=== PATIENT | female | born 1965 | race Two or more races ===

== ENCOUNTER 2018-01-25 23:33 | Emergency (ER) | payer MEDICAID ==
[~2018-01-25] VITALS: Ht 160 cm; Wt 72.6 kg
[2018-01-26] MEDS ORDERED: ONDANSETRON HCL/PF 4 MG/2 ML VIAL IVP ONE
[2018-01-26] MEDS ORDERED: IV NS 0.9% 1,000 ML BAG IV ONE
[2018-01-26] MEDS ORDERED: MORPHINE SULFATE INJ 2 MG/ML DISP.SYRIN IV ONE
--- NOTE | 2018-01-26 | NUR ---
to bed 9 ambulatory c/o abdominal pain x1 day. pt aaox4 no acute distress noted, resp even and unlabored. urine sample collected and sent to lab.
[2018-01-26] MEDS ORDERED: ONDANSETRON HCL/PF 4 MG/2 ML VIAL ONE (00:07)
[2018-01-26] MEDS ORDERED: MORPHINE SULFATE INJ 4 MG/ML DISP.SYRIN ONE (00:07)
--- NOTE | 2018-01-26 00:16 | NUR ---
pt medicated by rn per er md order
[2018-01-26 00:26] LABS: CARBON DIOXIDE 32 mmol/L (21-32); CHLORIDE 104 mmol/L (98-107); CREATININE 0.7 mg/dL (0.6-1.3); GLUCOSE 124 mg/dL (74-106); POTASSIUM 3.9 mmol/L (3.5-5.1); SODIUM SERUM 139 mmol/L (136-145); UREA NITROGEN, BLOOD 8 mg/dL (7-18)
[2018-01-26 00:29] LABS: ALANINE AMINOTRANSFERASE 20 U/L (12-78); ALBUMIN 3.1 g/dL (3.4-5.0); ALKALINE PHOSPHATASE 110 U/L (46-116); ASPARTATE AMINOTRANSFERASE 11 U/L (15-37); BILIRUBIN,DIRECT 0.1 mg/dL (0.0-0.2); BILIRUBIN,TOTAL 0.3 mg/dL (0.2-1.0); LIPASE 130 U/L (73-393); TOTAL PROTEIN, SERUM 7.3 g/dL (6.4-8.2)
[2018-01-26 00:31] LABS: INR 0.96 (0.87-1.13); TROPONIN I < 0.017 ng/mL (0.00-0.056)
[2018-01-26 00:34] LABS: APPEARANCE,URINE SL CLOUDY (CLEAR); BILIRUBIN,URINE NEGATIVE (NEGATIVE); BLOOD, URINE NEGATIVE Ery/uL (NEGATIVE); COLOR,URINE YELLOW (YELLOW); KETONES,URINE NEGATIVE (NEGATIVE); LEUKOCYTE ESTERASE ,URINE NEGATIVE (NEGATIVE); NITRITE, URINE NEGATIVE (NEGATIVE); PROTEIN,URINE NEGATIVE (NEGATIVE); UGLUCOSE NEGATIVE (NEGATIVE); UROBILINOGEN,URINE 0.2 EU/dL (0.2)
[2018-01-26 01:09] LABS: BASOPHILS % (AUTO) 0.1 % (0.0-2.0); EOSINOPHILS % (AUTO) 4.3 % (0.0-6.0); HEMATOCRIT 40 % (33-45); HEMOGLOBIN 12.8 g/dL (11.5-14.8); LYMPHOCYTES # (AUTO) 1.4 /CMM (0.8-4.8); LYMPHOCYTES % (AUTO) 13.5 % (20.0-44.0); MEAN CORPUSCULAR HEMOGLOBIN 29 PG (26.0-33.0); MEAN CORPUSCULAR HGB CONC 32 g/dl (31.0-36.0); MEAN CORPUSCULAR VOLUME 90 fL (82-100); MONOCYTES # (AUTO) 0.7 /CMM (0.1-1.30); MONOCYTES % (AUTO) 7.4 % (2.0-12.0); NEUTROPHILS # (AUTO) 7.5 /CMM (1.8-8.9); NEUTROPHILS % (AUTO) 74.7 % (43.0-81.0); PLATELET COUNT (AUTO) 194 /CMM (150-450); RDW COEFFICIENT OF VARIATION 18.2 (11.5-15.0); WHITE BLOOD COUNT (AUTO) 10.1 K/uL (4.3-11.0)
[2018-01-26] MEDS ORDERED: IOHEXOL-350 100 ML VIAL IV ONE (01:25)
--- NOTE | 2018-01-26 03:28 | NUR ---
IV removed. Catheter intact and site benign. Pressure and 4x4 applied to site. No bleeding noted.Patient discharged to home in stable condition. Written and verbal after care instructions given. Patient verbalizes understanding of instruction. ambulatory with a steady gait noted. pt aaox4 no acute distress noted, resp even and unlabored. advice pt not to drive or operate any machinery due to pt was given narcotic medicine. pt verbalize understanding.
[2018-01-26 03:36] VITALS: BP 127/75
== END 2018-01-26 03:37 | disposition home or self-care (01) ==
LOC: ER 23:34
DX: R10.84 Generalized abdominal pain (principal); I50.9 Heart failure, unspecified; R07.89 Other chest pain; I11.0 Hypertensive heart disease with heart failure; Z85.42 Personal history of malignant neoplasm of other parts of uterus; Z88.6 Allergy status to analgesic agent
CPT/HCPCS: 36415; 71275; 74176; 80048; 80076; 81001; 83690; 84484; 85025; 85730; 87086; 93005; 96374; 96375; 99285; A4606; J2270; J2405; J7030; Q9967; Z7610; 81000-TC